=== PATIENT | female | born 1995 | race American Indian/Alaskan Native ===

== ENCOUNTER 2017-01-05 11:14 | Outpatient (CLI) | payer OTHER ==
--- NOTE | 2017-01-05 12:22 | Ultrasound Report ---
Bilateral breast ultrasound: The patient presents with her physician healing bilateral nodules and the patient palpating a nodule in the right breast at 3:00. Global left breast ultrasound is unremarkable. Global right breast ultrasound demonstrates at the palpable finding at 3:00 6 cm from nipple that there is a elongated and well circumscribed homogeneously hypoechoic mass with a maximum dimension of 3 cm. Mild enhancement of posterior wall. Minimal internal vascular flow with color imaging. 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 Recommendation: Findings discussed with patient to include possible biopsy versus short-term followup. BI-RADS CATEGORY: 3 = Probably benign ACR BI-RADS MAMMOGRAPHIC CODES: 0 = Needs additional imaging evaluation; 1 = Negative; 2 = Benign; 3 = Probably benign; 4 = Suspicious; 5 = Malignant; 6 = Known biopsy-proven malignancy COMMENT: 1. Dense breast tissue, i.e., adenosis, fibrocystic changes, etc., may obscure an underlying neoplasm. 2. Approximately 10% of cancers are not detected with mammography. 3. A negative mammography report should not delay biopsy if a clinically suspicious mass is present.
== END 2017-01-05 11:15 | disposition home or self-care (01) ==
LOC: SPVWC 11:14
PROVIDERS: ATTEND Family Medicine
DX: N60.01 Solitary cyst of right breast (principal); N60.02 Solitary cyst of left breast; N63 Unspecified lump in breast